=== PATIENT | male | born 1985 | race Caucasian/White ===

== ENCOUNTER 2019-07-08 17:37 | Emergency (ER) | payer MEDICAID ==
[~2019-07-08] VITALS: Ht 170.2 cm; Wt 68.0 kg
[2019-07-08] MEDS ORDERED: Cipro500 MG PO (20:00)
== END 2019-07-08 20:06 | disposition home or self-care (01) ==
LOC: ER 17:37
DX: S91.332A Puncture wound without foreign body, left foot, initial encounter (principal); F17.210 Nicotine dependence, cigarettes, uncomplicated; W45.0XXA Nail entering through skin, initial encounter
CPT/HCPCS: 73630; 90471; 90714; 99283-25

== ENCOUNTER 2020-10-17 23:38 | Emergency (ER) | payer SELFPAY ==
[~2020-10-17] VITALS: Ht 170.2 cm; Wt 74.8 kg
[~2020-10-17 23:38] MED LIST: Cipro500 MG PO
[2020-10-18] MEDS ORDERED: LORA.5 PO (00:41)
== END 2020-10-18 01:18 | disposition home or self-care (01) ==
LOC: ER 23:38
DX: F41.9 Anxiety disorder, unspecified (principal); F17.210 Nicotine dependence, cigarettes, uncomplicated; Z79.899 Other long term (current) drug therapy
CPT/HCPCS: 99284

== ENCOUNTER → 2020-10-21 | Outpatient (CLI) | payer OTHER ==
[~2020-10-21] MED LIST changes: +LORA.5 PO
[2020-10-21 12:46] LABS: BASOPHILS ABSOLUTE AUTO 0.05 K/mm3 (0.00-0.23); BASOPHILS PERCENT AUTO 1 % (0-2); EOSINOPHILS PERCENT AUTO 1 % (0-6); Hematocrit 46.5 % (37.0-53.0); Hemoglobin 16.4 g/dL (13.5-17.5); IMMATURE GRAN ABSOLUTE AUTO 0.03 K/mm3 (0.00-0.10); IMMATURE GRAN PERCENT AUTO 0 % (0-1); LYMPHOCYTES ABSOLUTE AUTO 1.78 K/mm3 (0.84-5.20); LYMPHOCYTES PERCENT AUTO 21 % (21-46); MONOCYTES ABSOLUTE AUTO 0.54 K/mm3 (0.16-1.47); MONOCYTES PERCENT AUTO 6 % (4-13); Mean Corpuscular HGB 31.5 pg (26.0-34.0); Mean Corpuscular HGB Conc 35.3 g/dL (31.5-36.5); Mean Corpuscular Volume 89 fL (80-100); Mean Platelet Volume 10.3 fL (9.1-12.4); NEUTROPHILS ABSOLUTE AUTO 5.98 K/mm3 (1.96-9.15); NEUTROPHILS PERCENT AUTO 70 % (41-73); Platelet Count 170 K/mm3 (150-400); RDW Coefficient Variation 11.7 % (11.7-14.2); RDW Standard Deviation 37.8 fL (35.1-46.3); Red Blood Cell Count 5.21 M/mm3 (4.30-5.90); White Blood Cell Count 8.48 K/mm3 (4.00-11.30)
[2020-10-21 13:33] LABS: Alanine Aminotransfer (ALT/SGP 49 U/L (12-78); Albumin, Blood 4.7 g/dL (3.4-5.0); Albumin/Globulin Ratio 1.2 (0.8-1.8); Alk Phos 83 U/L (40-126); Anion Gap 13 mmol/L (6-16); Aspartate Aminotrans (AST/SGOT 39 U/L (12-37); Bilirubin, Total 1.8 mg/dL (0.1-1.0); Blood Urea Nitrogen 18 mg/dL (8-24); Bun/Creatinine Ratio 20.5 (12.0-20.0); CO2, Blood 26 mmol/L (21-32); Calcium, Blood 9.2 mg/dL (8.5-10.1); Chloride, Blood 98 mmol/L (98-108); Creatinine, Blood 0.88 mg/dL (0.60-1.20); Globulin, Blood 3.8 g/dL (2.2-4.0); Glomerular Filtration Rate >60 (60-); Glucose, Blood 95 mg/dL (70-99); Sodium, Blood 137 mmol/L (136-145); Thyroid Stimulating Hormone 1.933 uIU/mL (0.360-4.800); Total Protein, Blood 8.5 g/dL (6.4-8.2)
== END | disposition home or self-care (01) ==
LOC: LAB EV 12:41 → LAB SHORT 12:41
PROVIDERS: Physician Assistant
DX: F41.9 Anxiety disorder, unspecified (principal); R53.83 Other fatigue
CPT/HCPCS: 80053; 83690; 84443; 85025

== ENCOUNTER → 2021-04-30 | Outpatient (CLI) | payer OTHER | LOC: LAB SHORT 14:30 → LAB 14:30 | DX: L72.3 Sebaceous cyst (principal) | CPT/HCPCS: 87070; 87075; 87205 ==

== ENCOUNTER 2021-09-01 10:08 | Emergency (ER) | payer OTHER ==
[~2021-09-01] VITALS: Ht 170.2 cm; Wt 74.8 kg
[2021-09-01 11:02] LABS: BASOPHILS ABSOLUTE AUTO 0.03 K/mm3 (0.00-0.23); BASOPHILS PERCENT AUTO 1 % (0-2); EOSINOPHILS ABSOLUTE AUTO 0.09 K/mm3 (0.00-0.68); EOSINOPHILS PERCENT AUTO 2 % (0-6); Hemoglobin 16.9 g/dL (13.5-17.5); IMMATURE GRAN ABSOLUTE AUTO 0.01 K/mm3 (0.00-0.10); IMMATURE GRAN PERCENT AUTO 0 % (0-1); LYMPHOCYTES ABSOLUTE AUTO 1.22 K/mm3 (0.84-5.20); LYMPHOCYTES PERCENT AUTO 25 % (21-46); MONOCYTES PERCENT AUTO 10 % (4-13); Mean Corpuscular HGB 31.5 pg (26.0-34.0); Mean Corpuscular HGB Conc 35.2 g/dL (31.5-36.5); Mean Corpuscular Volume 90 fL (80-100); Mean Platelet Volume 10.9 fL (9.1-12.4); NEUTROPHILS ABSOLUTE AUTO 3.06 K/mm3 (1.96-9.15); NEUTROPHILS PERCENT AUTO 62 % (41-73); RDW Coefficient Variation 11.9 % (11.7-14.2); RDW Standard Deviation 39.1 fL (35.1-46.3); Red Blood Cell Count 5.36 M/mm3 (4.30-5.90); White Blood Cell Count 4.91 K/mm3 (4.00-11.30)
[2021-09-01 11:15] LABS: Alanine Aminotransfer (ALT/SGP 240 U/L (12-78); Albumin, Blood 4.2 g/dL (3.4-5.0); Alk Phos 70 U/L (50-136); Anion Gap 9 mmol/L (6-16); Aspartate Aminotrans (AST/SGOT 299 U/L (12-37); Blood Urea Nitrogen 9 mg/dL (8-24); CO2, Blood 27 mmol/L (21-32); Chloride, Blood 103 mmol/L (98-108); Creatinine, Blood 0.75 mg/dL (0.60-1.20); Globulin, Blood 4.3 g/dL (2.2-4.0); Glomerular Filtration Rate >60 (60-); Glucose, Blood 122 mg/dL (70-99); Potassium, Blood 3.6 mmol/L (3.5-5.5); Sodium, Blood 139 mmol/L (136-145); Total Protein, Blood 8.5 g/dL (6.4-8.2)
[2021-09-01 11:15] LABS: Calcium, Ionized (POC) 0.99 mmol/L (1.10-1.46); Chloride (POC) 101 mmol/L (98-108); Creatinine (POC) 1.3 mg/dL (0.8-1.3); Glucose (ISTAT POC) 132 mg/dL (70-99); Hemoglobin (POC) 16.3 g/dL (13.5-17.5); Potassium (POC) 3.5 mmol/L (3.5-5.5); Sodium (POC) 142 mmol/L (135-148); Total CO2 (POC) 28 mmol/L (21-32)
[2021-09-01 11:26] LABS: Platelet Count 46 K/mm3 (150-400)
[2021-09-01 11:51] LABS: Source, Urine Clean Catch
[2021-09-01 12:00] LABS: Bilirubin, Urine Neg (Neg); Blood, Urine 1+ (Neg); Glucose Qualitative, Urine Neg (Neg); Ketones, Urine 1+ (Neg); Leukocyte Esterase, Urine 1+ (Neg); Nitrite, Urine Neg (Neg); Protein, Urine 3+ (Neg); Urobilinogen, Urine 3+ (Normal)
[2021-09-01 12:02] LABS: International Normalized Ratio 0.98; Prothrombin Time Results 10.3 Sec (9.7-11.5)
[2021-09-01 12:06] LABS: Hematocrit 44.4 % (37.0-53.0); Hemoglobin 15.4 g/dL (13.5-17.5); Mean Corpuscular HGB 31.7 pg (26.0-34.0); Mean Corpuscular HGB Conc 34.7 g/dL (31.5-36.5); Mean Corpuscular Volume 91 fL (80-100); Mean Platelet Volume 11.3 fL (9.1-12.4); RDW Coefficient Variation 11.9 % (11.7-14.2); RDW Standard Deviation 40.2 fL (35.1-46.3); Red Blood Cell Count 4.86 M/mm3 (4.30-5.90); White Blood Cell Count 4.41 K/mm3 (4.00-11.30)
[2021-09-01 12:38] LABS: Platelet Count 40 K/mm3 (150-400)
[2021-09-01 12:39] LABS: Appearance, Urine Cloudy (Clear); Color, Urine Yellow (P-Yellow)
[2021-09-01 12:42] LABS: Amorphous Mod (0-Heavy); Bacteria Few /hpf; Red Blood Cells, Urine 0-2 /hpf (0-2); Squamous Epithelial Cells Rare /hpf (Few); White Blood Cells, Urine 0-2 /hpf (0-5)
[2021-09-01] MEDS ORDERED: ATEN25 PO (14:27)
[2021-09-01] MEDS ORDERED: Hydroxyzine HCl25 MG PO (14:28)
[2021-09-01] MEDS ORDERED: FLUOXETINE HCL10 M1 PO (14:29)
[2021-09-01] MEDS ORDERED: OMEPRAZOLE MAGN20 MG PO (16:21)
[2021-09-01] MEDS ORDERED: ONDA4 PO (16:21)
[2021-09-01] MEDS ORDERED: Carafate1 GM/10 ML PO (16:21)
== END 2021-09-01 16:20 | disposition home or self-care (01) ==
LOC: ER 10:08
PROVIDERS: Physician Assistant; Student in an Organized Health Care Education/Training Program
DX: K92.2 Gastrointestinal hemorrhage, unspecified (principal); K92.0 Hematemesis; D69.6 Thrombocytopenia, unspecified; Z72.89 Other problems related to lifestyle; F17.210 Nicotine dependence, cigarettes, uncomplicated
CPT/HCPCS: 36415; 36430; 80047; 80053; 81001; 82272; 83690; 85014; 85025; 85027; 85610; 85730; 86850; 86900; 86901; 87086; 93005; 93010; 96374; 96375; 99285-25; A9270; C9113; J2405; J2765; J7030; P9053

== ENCOUNTER 2022-06-04 13:12 | Emergency (ER) | payer OTHER ==
[~2022-06-04] VITALS: Ht 170.2 cm; Wt 90.7 kg
[~2022-06-04 13:12] MED LIST changes: +ATEN25 PO; +Carafate1 GM/10 ML PO; +FLUOXETINE HCL10 M1 PO; +Hydroxyzine HCl25 MG PO; +OMEPRAZOLE MAGN20 MG PO; +ONDA4 PO; +ONDA4ODT MM
[2022-06-04 13:53] LABS: BASOPHILS ABSOLUTE AUTO 0.03 K/mm3 (0.00-0.23); BASOPHILS PERCENT AUTO 0 % (0-2); EOSINOPHILS ABSOLUTE AUTO 0.01 K/mm3 (0.00-0.68); EOSINOPHILS PERCENT AUTO 0 % (0-6); Hematocrit 44.7 % (37.0-53.0); Hemoglobin 15.5 g/dL (13.5-17.5); IMMATURE GRAN ABSOLUTE AUTO 0.04 K/mm3 (0.00-0.10); IMMATURE GRAN PERCENT AUTO 0 % (0-1); LYMPHOCYTES ABSOLUTE AUTO 1.03 K/mm3 (0.84-5.20); LYMPHOCYTES PERCENT AUTO 11 % (21-46); MONOCYTES PERCENT AUTO 6 % (4-13); Mean Corpuscular HGB 27.1 pg (26.0-34.0); Mean Corpuscular HGB Conc 34.7 g/dL (31.5-36.5); Mean Corpuscular Volume 78 fL (80-100); Mean Platelet Volume 10.7 fL (9.1-12.4); NEUTROPHILS PERCENT AUTO 82 % (41-73); Platelet Count 62 K/mm3 (150-400); RDW Coefficient Variation 13.5 % (11.7-14.2); RDW Standard Deviation 38.5 fL (35.1-46.3); Red Blood Cell Count 5.71 M/mm3 (4.30-5.90); White Blood Cell Count 9.41 K/mm3 (4.00-11.30)
[2022-06-04 14:33] LABS: Albumin, Blood 3.7 g/dL (3.4-5.0); Bilirubin, Total 1.2 mg/dL (0.1-1.0); Bun/Creatinine Ratio 15.8 (12.0-20.0); Calcium, Blood 8.7 mg/dL (8.5-10.1); Creatinine, Blood 0.76 mg/dL (0.60-1.20); Globulin, Blood 3.7 g/dL (2.2-4.0); Total Protein, Blood 7.4 g/dL (6.4-8.2)
[2022-06-04] MEDS ORDERED: ONDA4ODT MM (16:29)
== END 2022-06-04 19:21 | disposition home or self-care (01) ==
LOC: ER 13:12
PROVIDERS: Emergency Medicine
DX: F10.139 Alcohol abuse with withdrawal, unspecified (principal); K85.90 Acute pancreatitis without necrosis or infection, unspecified; I10 Essential (primary) hypertension; F17.210 Nicotine dependence, cigarettes, uncomplicated; F41.9 Anxiety disorder, unspecified; Z79.899 Other long term (current) drug therapy
CPT/HCPCS: 80053; 83690; 85025; 96365; 96375; 96376; 99284-25; A9270; G0480; J2550; J2560; J3360; J7030

== ENCOUNTER → 2022-09-08 | Outpatient (CLI) | payer OTHER | LOC: LAB SHORT 19:15 → LAB 19:15 | DX: L03.90 Cellulitis, unspecified (principal) | CPT/HCPCS: 87070; 87075; 87205 ==

== ENCOUNTER 2025-05-28 10:20 | Emergency (ER) | payer OTHER ==
[~2025-05-28] VITALS: Ht 177.8 cm; Wt 77.1 kg
[~2025-05-28 10:20] MED LIST changes: +ATENOLOL25 MG PO; +Naltrexone HCl50 MG PO; +TRAZ100 PO
[2025-05-28 10:58] VITALS: BP 164/119
[2025-05-28] MEDS ORDERED: Cyclobenzaprine5 MG (11:02)
[2025-05-28] MEDS ORDERED: DISU250 (11:03)
[2025-05-28] MEDS ORDERED: ESCI20 PO (11:03)
[2025-05-28 11:13] LABS: BASOPHILS ABSOLUTE AUTO 0.04 K/mm3 (0.00-0.23); BASOPHILS PERCENT AUTO 0 % (0-2); EOSINOPHILS ABSOLUTE AUTO 0.04 K/mm3 (0.00-0.68); EOSINOPHILS PERCENT AUTO 0 % (0-6); Hematocrit 43.5 % (37.0-53.0); Hemoglobin 15.1 g/dL (13.5-17.5); IMMATURE GRAN ABSOLUTE AUTO 0.02 K/mm3 (0.00-0.10); IMMATURE GRAN PERCENT AUTO 0 % (0-1); LYMPHOCYTES ABSOLUTE AUTO 2.86 K/mm3 (0.84-5.20); LYMPHOCYTES PERCENT AUTO 23 % (21-46); MONOCYTES ABSOLUTE AUTO 0.55 K/mm3 (0.16-1.47); MONOCYTES PERCENT AUTO 4 % (4-13); Mean Corpuscular HGB Conc 34.7 g/dL (31.5-36.5); Mean Corpuscular Volume 80 fL (80-100); NEUTROPHILS ABSOLUTE AUTO 8.89 K/mm3 (1.96-9.15); NEUTROPHILS PERCENT AUTO 72 % (41-73); NRBC ABSOLUTE 0.00 K/mm3 (0.00-0.02); NRBC Auto 0.0 /100 WBC (0.0-0.2); Platelet Count 287 K/mm3 (150-400); RDW Coefficient Variation 13.4 % (11.7-14.2); RDW Standard Deviation 38.4 fL (35.1-46.3)
[2025-05-28] MEDS ORDERED: XANAX0.25 MG PO (11:26)
[2025-05-28 11:41] LABS: Alanine Aminotransfer (ALT/SGP 25.0 U/L (12-78); Albumin, Blood 4.2 g/dL (3.4-5.0); Albumin/Globulin Ratio 1.1 (0.8-1.8); Anion Gap 8.0 mmol/L (3-11); Aspartate Aminotrans (AST/SGOT 19.0 U/L (12-37); Bilirubin, Total 1.4 mg/dL (0.1-1.0); Blood Urea Nitrogen 12.0 mg/dL (8-24); CO2, Blood 25.0 mmol/L (21-32); Calcium, Blood 8.9 mg/dL (8.5-10.1); Chloride, Blood 107.0 mmol/L (98-108); Creatinine, Blood 0.93 mg/dL (0.60-1.20); Globulin, Blood 3.9 g/dL (2.2-4.0); Glucose, Blood 110.0 mg/dL (70-99); Potassium, Blood 3.8 mmol/L (3.5-5.5); Sodium, Blood 136.0 mmol/L (136-145); Total Protein, Blood 8.1 g/dL (6.4-8.2)
== END 2025-05-28 12:34 | disposition home or self-care (01) ==
LOC: ER 10:20
PROVIDERS: Emergency Medicine
DX: F30.9 Manic episode, unspecified (principal); F41.9 Anxiety disorder, unspecified; T43.225A Adverse effect of selective serotonin reuptake inhibitors, initial encounter; I10 Essential (primary) hypertension; F17.210 Nicotine dependence, cigarettes, uncomplicated; Z79.899 Other long term (current) drug therapy
CPT/HCPCS: 80053; 85025; A9270

== ENCOUNTER 2025-10-02 22:59 | Emergency (ER) | payer OTHER ==
[~2025-10-02] VITALS: Ht 170.2 cm; Wt 77.1 kg
[~2025-10-02 22:59] MED LIST changes: +Cyclobenzaprine5 MG; +DISU250; +ESCI20 PO; +LORA2 PO; +XANAX0.25 MG PO
[2025-10-02 23:09] VITALS: BP 131/67
== END 2025-10-03 03:30 | disposition home or self-care (01) ==
LOC: ER 22:59
DX: G89.18 Other acute postprocedural pain (principal); N50.812 Left testicular pain; I10 Essential (primary) hypertension; F41.9 Anxiety disorder, unspecified; F17.210 Nicotine dependence, cigarettes, uncomplicated; Z79.899 Other long term (current) drug therapy
CPT/HCPCS: 76870; 99284-25